=== PATIENT | male | born 1990 | race Hispanic/Latino ===

== ENCOUNTER 2017-08-26 14:54 | Emergency (ER) | payer OTHER ==
[2017-08-26] MEDS: IBUPROFEN 800 MG TAB PO (19:02)
[2017-08-26] MEDS: NORCO 5/325MG TABLET (BULK FOR ED) PO (19:26)
== END 2017-08-26 19:30 | disposition home or self-care (01) ==
LOC: M ED 14:54
DX: S99.911A Unspecified injury of right ankle, initial encounter (principal); V28.4XXA Motorcycle driver injured in noncollision transport accident in traffic accident, initial encounter; Y92.410 Unspecified street and highway as the place of occurrence of the external cause
CPT/HCPCS: 73610

== ENCOUNTER → 2018-01-22 | Outpatient (CLI) | payer OTHER ==
[~2018-01-22] MED LIST: ISOVUE-370 76% 100ML VIAL (Q9967) As Ordered
== END ==
LOC: M RAD 18:17
DX: R05 Cough (principal); R91.8 Other nonspecific abnormal finding of lung field
CPT/HCPCS: Q9967

== ENCOUNTER 2018-12-05 19:44 | Emergency (ER) | payer OTHER ==
[~2018-12-05] VITALS: Ht 172.7 cm; Wt 81.8 kg
[~2018-12-05 19:44] MED LIST changes: +HYDR-3715 PO; -ISOVUE-370 76% 100ML VIAL (Q9967) As Ordered
[2018-12-05 19:45] VITALS: BP 137/68
[2018-12-05] MEDS ORDERED: NAPR-837 PO (20:36)
[2018-12-05] MEDS ORDERED: NAPR-885 PO (20:40)
[2018-12-05] MEDS ORDERED: NAPROXEN 250 MG TAB PO ONE (20:45)
== END 2018-12-05 20:48 | disposition home or self-care (01) ==
LOC: M ED 19:44
DX: M62.830 Muscle spasm of back (principal)